=== PATIENT | female | born 1985 | race Caucasian/White ===

== ENCOUNTER 2016-07-17 14:43 | Outpatient (CLI) | payer SELFPAY ==
[2016-07-17 15:19] VITALS: BMI 29.7
== END 2016-07-17 15:30 | disposition home or self-care (01) ==
LOC: FBCOUT 14:43 → FBC 14:45 → FBCOUT 15:30
PROVIDERS: ATTEND Family Medicine
DX: O26.899 Other specified pregnancy related conditions, unspecified trimester (principal); Z3A.00 Weeks of gestation of pregnancy not specified

== ENCOUNTER 2016-07-28 09:06 | Inpatient (IN) | payer MEDICAID ==
[2016-07-28 09:33] VITALS: BMI 32.8
[2016-07-28] MEDS ORDERED: FENTANYL 100 MCG/2 ML VIAL IV PRN (09:46)
[2016-07-28] MEDS ORDERED: OXYTOCIN 10 UNITS/ML VIAL ONE (10:02)
[2016-07-28] MEDS ORDERED: IV START KIT ONE (10:02)
[2016-07-28] MEDS ORDERED: PUMP TUBING ONE ×2 (10:03→15:37)
[2016-07-28] MEDS ORDERED: MINERAL OIL 25 ML BOT ONE (10:03)
[2016-07-28] MEDS ORDERED: OXYTOCIN IN LR 500 ML IV ONE ×3 (10:03→15:47)
[2016-07-28] MEDS ORDERED: LIDOCAINE Viscous 2% 15 ML UDCUP ONE (10:03)
[2016-07-28] MEDS ORDERED: LIDOCAINE 1% (PRES FREE) 30 ML VIAL ONE (10:03)
[2016-07-28] MEDS ORDERED: SODIUM CHLORIDE 0.9% FLUSH 10 ML ONE (10:03)
[2016-07-28 10:52] LABS: HEMATOCRIT 33.8 % (37.0-47.0); MEAN CELL VOLUME 83.3 fl (81.0-99.0); MEAN CORPUSCULAR HEMOGLOBIN 29.6 pg (27.0-31.0); MEAN CORPUSCULAR HGB CONC 35.5 g/dl (33.0-37.0); RED CELL DISTRIBUTION WIDTH 14.7 % (11.5-14.5)
[2016-07-28] MEDS: LACTATED RINGERS 1,000 ML IV SCH (11:36)
--- NOTE | 2016-07-28 11:49 | PDOC36 ---
Provider Note Note: cc: Admission H&P HPI: 31 y.o. year old CASIE 07/27/2016, by Last Menstrual Period at 40w1d who presents with strong contractions which started several hours ago which have strengthened. She thinks she is in labor. REVIEW OF SYSTEMS GENERAL:~ No fever or headache EYES:~ No double or blurry vision. CARDIOVASCULAR:~ No chest pain. RESPIRATORY:~ No severe shortness of breath or cough. GASTROINTESTINAL:~ No nausea or vomiting or right upper quadrant pain.~ PSYCHIATRIC:~ No anxiety or depression. PROBLEMS Term Chlamydia which was treated Rubella NonImmune Smokeless Tobacco Use Late Care OB HISTORY #: 1, Date: 12/29/00, Sex: Male, Weight: 2.722 kg (6 lb), GA: 40w0d, Delivery: Vaginal, Spontaneous Delivery, Apgar1: None, Apgar5: None, Living: Yes, Comments : None #: 2, Date: 06/13/04, Sex: Female, Weight: 3.175 kg (7 lb), GA: 40w0d, Delivery : Vaginal, Spontaneous Delivery, Apgar1: None, Apgar5: None, Living: Yes, Comments: None #: 3, Date: 2006, Sex: None, Weight: None, GA: None, Delivery: Spontaneous , Apgar1: None, Apgar5: None, Living: None, Comments: None #: 4, Date: 2009, Sex: None, Weight: None, GA: None, Delivery: Spontaneous , Apgar1: None, Apgar5: None, Living: None, Comments: None #: 5, Date: 10/08/11, Sex: Male, Weight: 3.175 kg (7 lb), GA: 40w0d, Delivery: Vaginal, Spontaneous Delivery, Apgar1: None, Apgar5: None, Living: Yes, Comments : None #: 6, Current PSH No past surgical history on file. SOC HX Reports that she has never smoked. She uses smokeless tobacco. She reports that she does not drink alcohol or use illicit drugs. ALL No Known Allergies MEDICATIONS ~ Vit-Fe Fumarate-FA (/FOLIC ACID PO), Take by mouth., Disp: , Rfl:~ PHYSICAL EXAMINATION VITAL SIGNS:~ 100/64, 82 bpm Estimated body mass index is 32.55 Total weight gain is 0 kg (0 lb) FHT:~ 145 with moderate variability and no accels. Late decels, Category II. [place]:~ Contractions q2-5 minutes. SVE:~ 7/90/-3 GENERAL:~ No distress CARDIOVASCULAR:~ Regular rate and rhythm, no murmur, JVD or pedal edema. RESPIRATORY:~ Clear to auscultation bilaterally, respiratory effort is nonlabored at rest. GASTROINTESTINAL:~ Gravid no fundal tenderness NEUROLOGIC:~ Deep tendon reflexes are 2+ in the knees.~ Cranial nerves II-XII are grossly intact. PSYCHIATRIC:~ Alert and oriented x3, judgement and memory is intact, mood is pleasant. LABS & STUDIES B+ Antibody- Rubella NonImmune Hep B- HIV- GC/Chlamydia- Trep- Hgb 12.0 GBS Negative ULTRASOUNDS 04/06/16: 23 wks Ant placenta, no previa, normal anatomy. ASSESSMENT 31 y.o. year old CASIE 07/27/2016, by Last Menstrual Period at 40w1d who presents in labor. PLAN Admit for expectant management, chlamydia on 07/23 was negative, no need for followup test today. Rubella NI: Needs MMR PP. Smokeless Tobacco: Monitor NB for signs of withdrawl. Bradford Glover MD MPH
[2016-07-28 12:15] LABS: AMPHETAMINES/METHAMPHETAMINES NEGATIVE (NEGATIVE); COCAINE NEGATIVE (NEGATIVE); MARIJUANA NEGATIVE (NEGATIVE); METHADONE NEGATIVE (NEGATIVE); OPIATES NEGATIVE (NEGATIVE); TRICYCLIC ANTIDEPRESSANTS NEGATIVE (NEGATIVE)
[2016-07-28] MEDS: OXYTOCIN IN LR 500 ML IV ONE ×2 (12:31→15:42)
[2016-07-28] MEDS ORDERED: LIDOCAINE 1% 2 ML VIAL PF ONE (13:02)
[2016-07-28] MEDS ORDERED: LIDOCAINE 1% (PRES FREE) 30 ML VIAL PF ONE (13:15)
--- NOTE | 2016-07-28 13:26 | PCMDEL ---
Delivery Note - Delivery Delivery (Date): 07/28/16 Delivery (Time): 12:27 Gender: Female Presentation: Cephalic Position: OA Umbilical Cord: 3 Vessel Delayed Cord Clamping:: 2-3 min 1 Minute Total: 8 5 Minute Total: 9 Placenta:: 12:32 EBL:: 300 mL Perineum:: 2nd degree perineal Suture:: 2-0 Vicryl Anesthesia/Meds:: Fentanyl and 2.0 mL of 1% Lidocaine to perineum Length ROM:: 1 hour Comments:: Delivered MYRNA with a nuchal cord which the baby delivered through, slightly stunned at delivery with quick recovery within 30 seconds of stimulation. Second degree perineal laceration which was repaired in the usual fashion with good hemostasis.
[2016-07-28] MEDS ORDERED: MISOPROSTOL 200 MCG TABLET ONE (15:34)
[2016-07-28] MEDS ORDERED: MISOPROSTOL 200 MCG TABLET PR ONE (15:40)
[2016-07-28] MEDS ORDERED: BENZOCAINE/MENTHOL 60 APPLIC/BOT TP PRN (15:47)
[2016-07-28] MEDS ORDERED: MAGNESIUM HYDROXIDE 30 ML UDCUP PO PRN (15:47)
[2016-07-28] MEDS ORDERED: DOCUSATE SODIUM 100 MG CAPSULE PO PRN (15:47)
[2016-07-28] MEDS ORDERED: LANOLIN 50 APPLIC/7G TUBE TP PRN (15:47)
[2016-07-28] MEDS ORDERED: MEASLES,MUMPS&RUBELLA VACCINE 0.5 ML VIAL SUB-Q V ONE (15:47)
[2016-07-28] MEDS ORDERED: OXYCODONE HCL 5 MG TABLET PO PRN (15:47)
[2016-07-28] MEDS ORDERED: HYDROCODONE/ACETAMINOPHEN 5/325MG TABLET PO PRN (15:47)
[2016-07-28] MEDS ORDERED: CALCIUM CARBONATE 500 MG TAB.CHEW PO PRN (15:47)
[2016-07-28] MEDS ORDERED: SENNOSIDES 8.6 MG TABLET PO PRN (15:47)
[2016-07-28] MEDS: IBUPROFEN 600 MG TABLET PO PRN ×2 (16:07→22:29)
--- NOTE | 2016-07-28 16:25 | PDOC36 ---
Provider Note Note: Called to bedside, nurse had gotten patient up to bathroom and noted 2 large clots from vagina. Patient VS stable and she was not dizzy. Pt taken to bed and I expressed another large clot from vagina with fundal pressure. Fundus firmed with massage with decreased bleeding, 800 mcg of rectal cytotec placed. Clots weighed and equaled approximately 850 mL, patient's VS stable and she is asymtpomatic, bleeding has lessened significantly, now minimal to none. Will continue to monitor very closely. At delivery placenta was noted to delivery with trailing membranes and was intact. Bleeding most likely from atony. Will check back in later tonight.
[2016-07-29 06:56] LABS: HEMATOCRIT 23.9 % (37.0-47.0); HEMOGLOBIN 8.6 gm/l (12.0-16.0)
[2016-07-29] MEDS: IBUPROFEN 600 MG TABLET PO PRN ×2 (07:35→21:24)
--- NOTE | 2016-07-29 12:35 | PDOC44 ---
- Subjective Day: 1 Doing well except mild dizziness, but not enough to be unsteady. Pain controlled. VB normal. No fever, chills, cp, sob or leg pain. Able to ambulate and void. Reports Flatus, Reports Pain Tolerable, Reports , Reports Tolerating Regular Diet, Denies Nausea, Denies Vomiting - Objective Temp Pulse Resp BP Pulse Ox 97.8 F 80 16 103/53 07/29/16 07:30 07/29/16 07:30 07/29/16 07:30 07/29/16 07:30 Lab Results 07/29/16 06:00 Hgb 8.6 L D Hct 23.9 L 07/28/16 10:20 RPR Titer 1:1 H RPR Confirmation Reactive H Current Medications Generic Name Dose Route Start Last Admin Trade Name Freq PRN Reason Stop Dose Admin Acetaminophen/Hydrocodone Bitart 1 - 2 tab 07/28/16 15:47 07/28/16 16:08 [place] 5/325 PO 1 tab Q4H PRN Administration Pain (Moderate) Benzocaine/Menthol 1 applic 07/28/16 15:47 Dermoplast TP PRN PRN Patient Comfort Calcium Carbonate/Glycine 500 - 1,000 mg 07/28/16 15:47 Tums PO BID PRN Indigestion Docusate Sodium 100 mg 07/28/16 15:47 Colace PO DAILY PRN Comfort Emollient Ointment 1 applic 07/28/16 15:47 [id number] TP PRN PRN sore nipples Ibuprofen 600 mg 07/28/16 15:47 07/29/16 07:35 Motrin PO 600 mg Q6H PRN Administration Pain (Mild) Magnesium Hydroxide 30 ml 07/28/16 15:47 Milk Of Magnesia PO BEDTIME PRN Constipation Oxycodone HCl 5 - 10 mg 07/28/16 15:47 Roxicodone PO Q3H PRN Pain (Severe) Senna 17.2 mg 07/28/16 15:47 Senokot PO BEDTIME PRN Comfort - Physical Exam General: Afebrile, No Acute Distress Psych/Mental Status: Mood/Affect Appropriate, Judgment/Insight Intact, Bonding Well Neurological: Grossly Intact, Alert, Normal Speech HEENT: Atraumatic, Mucous membr. moist/pink Lungs: Clear to Auscultation Bilaterally Cardiovascular: Regular Rate and Rhythm Breast: Soft Fundus: Firm, Midline, Below Umbilicus Skin: Normal Color, Warm, Dry, Intact, No Rash - Problems:Assessment/Plan (1) (spontaneous vaginal delivery) Status: Acute Assessment/Plan: Doing well PPD#1 s/p , had PPH 1 hr after delivery Normal pp vb now Routine PP care Support BF Anticip DC home in AM Has screening syphilis RPR positive, but titer just 1:1, no w/u on baby. Pt had 2 neg treponemal tests during care of this preg (2) Anemia associated with acute blood loss Status: Acute Assessment/Plan: Will give IV iron and on DC home oral Fe and PNV Disposition: Stable, Anticipate DC Home Tomorrow
[2016-07-29] MEDS ORDERED: IRON SUCROSE COMPLEX 200 MG in SODIUM CHLORIDE 0.9% 100 ML IV ONE (13:00)
[2016-07-29] MEDS ORDERED: SODIUM CHLORIDE 0.9% FLUSH 10 ML ONE (16:22)
[2016-07-29] MEDS ORDERED: LACTATED RINGERS 1,000 ML ONE (16:25)
[2016-07-29] MEDS ORDERED: PUMP TUBING ONE (16:25)
[2016-07-29] MEDS: LACTATED RINGERS 1,000 ML IV SCH (16:52)
[2016-07-30] MEDS: IBUPROFEN 600 MG TABLET PO PRN ×2 (09:06→14:42)
--- NOTE | 2016-07-30 09:34 | PDOC44 ---
- Subjective Day: 2 Reports Pain Tolerable, Reports , Reports Lochia Light, Reports Tolerating Regular Diet (dizziness with quick change in position, none with ambulation. Denies SOB, CP, palpitations) - Objective Temp Pulse Resp BP Pulse Ox 97.6 F 78 16 95/60 07/30/16 09:13 07/30/16 09:13 07/30/16 09:13 07/30/16 09:13 Current Medications Generic Name Dose Route Start Last Admin Trade Name Freq PRN Reason Stop Dose Admin Acetaminophen/Hydrocodone Bitart 1 - 2 tab 07/28/16 15:47 07/28/16 16:08 [place] 5/325 PO 1 tab Q4H PRN Administration Pain (Moderate) Benzocaine/Menthol 1 applic 07/28/16 15:47 Dermoplast TP PRN PRN Patient Comfort Calcium Carbonate/Glycine 500 - 1,000 mg 07/28/16 15:47 Tums PO BID PRN Indigestion Docusate Sodium 100 mg 07/28/16 15:47 Colace PO DAILY PRN Comfort Emollient Ointment 1 applic 07/28/16 15:47 [id number] TP PRN PRN sore nipples Ibuprofen 600 mg 07/28/16 15:47 07/30/16 09:06 Motrin PO 600 mg Q6H PRN Administration Pain (Mild) Magnesium Hydroxide 30 ml 07/28/16 15:47 Milk Of Magnesia PO BEDTIME PRN Constipation Oxycodone HCl 5 - 10 mg 07/28/16 15:47 Roxicodone PO Q3H PRN Pain (Severe) Senna 17.2 mg 07/28/16 15:47 Senokot PO BEDTIME PRN Comfort - Physical Exam General: Afebrile Psych/Mental Status: Mood/Affect Appropriate, Judgment/Insight Intact, Bonding Well Neurological: Grossly Intact, Alert HEENT: Atraumatic, EOMI Lungs: Clear to Auscultation Bilaterally, Normal Air Movement Cardiovascular: Regular Rate and Rhythm, Normal S1, Normal S2, No Murmur Breast: Soft, Skin intact Fundus: Firm, Midline, At Umbilicus Abdomen: Normal Bowel Sounds - Problems:Assessment/Plan (1) (spontaneous vaginal delivery) Status: Acute Assessment/Plan: Doing well PPD#2 s/p , had PPH 1 hr after delivery Normal pp vb now Routine PP care Support BF Has screening syphilis RPR positive, but titer just 1:1, no w/u on baby. Pt had 2 neg treponemal tests during care of this preg (2) Anemia associated with acute blood loss Status: Acute Assessment/Plan: s/p IV iron on PPD#1 will DC home oral Fe and PNV Disposition: Stable, Anticipate DC to Home
[2016-07-30] MEDS ORDERED: PENICILLIN G BENZATHINE 1.2 MMU/2 ML SYRINGE IM ONE (11:54)
[2016-07-30 14:31] VITALS: BP 102/62
== END 2016-07-30 16:09 | disposition home or self-care (01) | DRG 774 ==
LOC: FBCOUT 09:06 → FBC 09:07 → FBCOUT 09:48 → FBC 09:49
PROVIDERS: ADMIT Family Medicine; ATTEND Family Medicine
PROC: 10E0XZZ Delivery of Products of Conception, External Approach (ICD-10-PCS; principal; 2016-07-28)
PROC: 0KQM0ZZ Repair Perineum Muscle, Open Approach (ICD-10-PCS; 2016-07-28)
DX: O48.0 Post-term pregnancy (principal); O98.32 Other infections with a predominantly sexual mode of transmission complicating childbirth; D62 Acute posthemorrhagic anemia; A56.8 Sexually transmitted chlamydial infection of other sites; O99.334 Smoking (tobacco) complicating childbirth; F17.290 Nicotine dependence, other tobacco product, uncomplicated; O09.33 Supervision of pregnancy with insufficient antenatal care, third trimester; O09.43 Supervision of pregnancy with grand multiparity, third trimester; O70.1 Second degree perineal laceration during delivery; O69.81X0 Labor and delivery complicated by cord around neck, without compression, not applicable or unspecified; O99.02 Anemia complicating childbirth; Z3A.40 40 weeks gestation of pregnancy; Z37.0 Single live birth